=== PATIENT | male | born 1960 | race Caucasian/White ===

== ENCOUNTER 2020-06-19 14:16 | Outpatient (CLI) | payer BC, SELFPAY ==
--- NOTE | 2020-06-19 14:24 | CT_ITS ---
WS: [id number] LDCT LUNG CANCER SCREENING HISTORY: NICOTINE DEPENDENCE, CIGARETTES TECHNIQUE: Axial imaging performed from the apices to 1 cm below the costophrenic angles. Coronal and sagittal reformats are submitted with axial MIP series. All CT scans at [facility] use at least one of these dose optimization techniques: automated exposure control; mA and/or kV adjustment per patient size (includes targeted exams where dose is matched to clinical indication); or iterativ e reconstruction. DLP: 58.09 mGy.cm DIvol: 1.52 mGy COMPARISON: None available. Diagnostic quality: Satisfactory Lung Nodules: Benign granuloma medial LEFT lower lobe. Linear scar atelectasis LEFT lower lobe. No butler spicious pulmonary nodules. No endobronchial lesions. Lungs: Chronic emphysema. Heart: Normal size heart. No pericardial effusion. Other findings: Mild atherosclerosis aorta. Normal size pulmonary artery. Small hiatal hernia. CT/CT lung screening [id number] IMPRESSION: LUNG-RADS: 1-Negative FOLLOW UP: 12 Month: Continue annual screening with LDCT OTHER FINDINGS (S MODIFIER): None.
== END 2020-06-19 14:17 | disposition home or self-care (01) ==
PROVIDERS: PCP Family Medicine; Visit Provider Family Medicine
DX: Z12.2 Encounter for screening for malignant neoplasm of respiratory organs (principal); F17.210 Nicotine dependence, cigarettes, uncomplicated; I70.0 Atherosclerosis of aorta
CPT/HCPCS: G0297